=== PATIENT | female | born 1985 | race Caucasian/White ===

== ENCOUNTER 2016-09-02 09:32 | Emergency (ER) | payer SELFPAY ==
--- NOTE | 2016-09-02 10:34 | ED ---
Influenza-Like Illness - HPI Summary HPI Summary: Patient presents with two weeks of upper respiratory symptoms that she thought were improving last week, but became worse again. She has nasal and chest congestion, cough, intermittent headache, sore throat and fatigue. She has not measured her temperature, but she has had chills. - History of Current Complaint Chief Complaint: EDUpperRespComplaint Time Seen by Provider: 09/02/16 09:43 Hx Obtained From: Patient Onset/Duration: Gradual Onset, Lasting Weeks, Still Present Severity: Moderate Associated Signs & Symptoms: Cough, Sore Throat, Nasal Congestion Related Hx: Possible Flu/Infectious Exposure - Allergy/Home Medications Allergies/Adverse Reactions: Allergies Allergy/AdvReac Type Severity Reaction Status Date / Time Clindamycin Allergy Swelling Verified 09/02/16 09:36 PMH/Surg Hx/FS Hx/Imm Hx Previously Healthy: Yes - Surgical History Surgery Procedure, Year, and Place: TUBAL LIGATION Infectious Disease History: No Infectious Disease History: Denies: Traveled Outside the [place] in Last 30 Days - Family History Known Family History: Positive: None - Social History Occupation: Employed Full-time Lives: With Family Alcohol Use: Occasionally Substance Use Type: Reports: None Smoking Status (MU): Heavy Every Day Tobacco Smoker Cessation Counseling: Patient Advised to Stop Review of Systems Positive: Chills, Fatigue. Negative: Fever Positive: Sore Throat, Nasal Discharge Negative: Chest Pain Positive: Cough. Negative: Shortness Of Breath Negative: Vomiting, Diarrhea, Nausea Negative: Bruising Positive: Headache - intermittent. Negative: Weakness, Paresthesia All Other Systems Reviewed And Are Negative: Yes Physical Exam Triage Information Reviewed: Yes Vital Signs On Initial Exam: Initial Vitals Temp Pulse Resp BP Pulse Ox 98.0 F 92 20 138/91 99 09/02/16 09:36 09/02/16 09:36 09/02/16 09:36 09/02/16 09:36 09/02/16 09:36 Vital Signs Reviewed: Yes Appearance: Positive: Well-Appearing, No Pain Distress, Obese Skin: Positive: Warm, Skin Color Reflects Adequate Perfusion, Dry, Soft Head/Face: Positive: Normal Head/Face Inspection Eyes: Positive: EOMI, CLARA, Conjunctiva Clear ENT: Positive: Hearing grossly normal, Pharyngeal erythema, Nasal congestion, TMs normal - right obscured by wax. Negative: Tonsillar swelling Neck: Positive: Supple, No Lymphadenopathy, Tenderness @ - bilateral cervical chain. Negative: Nuchal Rigidity Respiratory/Lung Sounds: Positive: Clear to Auscultation, Breath Sounds Present Cardiovascular: Positive: RRR Musculoskeletal: Positive: Strength/ROM Intact. Negative: Edema Left, Edema Right Neurological: Positive: Sensory/Motor Intact, Alert, Oriented to Person Place, Time, NV Bundle Intact Distally, Normal Gait Psychiatric: Positive: Affect/Mood Appropriate AVPU Assessment: Alert Diagnostics - Vital Signs Vital Signs Temp Pulse Resp BP Pulse Ox 09/02/16 09:36 98.0 F 92 20 138/91 99 - Laboratory Lab Statement: Any lab studies that have been ordered have been reviewed, and results considered in the medical decision making process. Flu Symptom Course/Dx - Diagnoses Differential Diagnosis/HQI/PQRI: Positive: Bronchitis, Influenza, Pneumonia, RSV , Upper Respiratory Infection Provider Diagnoses: Bronchitis Discharge - Discharge Plan Condition: Stable Disposition: HOME Prescriptions: DOXYcycline CAP(*) [DOXYcycline 100MG CAP(*)] 100 mg PO DAILY #10 cap Patient Education Materials: Acute Bronchitis (ED) Referrals: [facility] [place] [place]] Additional Instructions: Please call the number provided to establish care with a primary care provider. Take the medication provided until it is completely gone. Return to the emergency department if your symptoms worsen.
--- NOTE | 2016-09-02 10:51 | RAD ---
INDICATION: Chest congestion. COMPARISON: Comparison is made with a prior chest x-ray study from November 23, 2013. TECHNIQUE: Dual-energy PA and lateral views of the chest were obtained. FINDINGS: The heart is within normal limits in size. Mediastinal and hilar contours appear within normal limits. The lungs are clear. No pleural effusion is present. IMPRESSION: NO EVIDENCE FOR ACTIVE CARDIOPULMONARY DISEASE.
[2016-09-02] MEDS ORDERED: Azithromycin TAB* 250 MG PO ONE (10:56)
[2016-09-02] MEDS ORDERED: DOXYcycline CAP(*) 100 MG PO ONE (11:44)
--- NOTE | 2016-09-02 12:02 | RAD ---
INDICATION: Right ring finger injury. TECHNIQUE: 3 views of the right ring finger were obtained. FINDINGS: The bones are normal alignment. No fracture is seen. Joint spaces appear maintained. IMPRESSION: NO EVIDENCE FOR FRACTURE.
[2016-09-02] MEDS ORDERED: Albuterol HFA INHALER* 8 gm MDI INH ONE (12:03)
[2016-09-02 12:35] VITALS: BP 145/97
[2016-09-02] MEDS ORDERED: Albuterol HFA INHALER* 8 gm MDI INH SCH (13:00)
== END 2016-09-02 12:31 | disposition home or self-care (01) ==
LOC: ED 09:32
DX: J40 Bronchitis, not specified as acute or chronic (principal); R05 Cough; J02.9 Acute pharyngitis, unspecified; R09.81 Nasal congestion; R51 Headache; R53.83 Other fatigue
CPT/HCPCS: 71020; 73140; 87651; 99282; A9270-GY

== ENCOUNTER 2017-01-07 19:12 | Emergency (ER) | payer SELFPAY ==
[2017-01-07 19:21] VITALS: BP 139/95
--- NOTE | 2017-01-07 19:55 | UC ---
Abdominal Pain Female HPI - HPI Summary HPI Summary: Burning general abdominal pain starting 4-5 days ago, minimally better with eating. On the first day had 4-5 episodes of diarrhea, since then has had 1 or 2 soft stools per day. Some nausea, no vomiting. Denies fever, cough, rash, or trouble breathing. Typically uses ibuprofen 3 doses per week. Hx of c/sec and tubal ligation. - History of Current Complaint Chief Complaint: UCAbdominalPain Stated Complaint: ABD PAIN Time Seen by Provider: 01/07/17 19:32 Hx Obtained From: Patient Hx Last Menstrual Period: 12/31/16 ?: No Onset/Duration: Gradual Onset, Lasting Days Timing: Constant Severity Initially: Mild Severity Currently: Mild Location: Diffuse Radiates: No Character: Burning, Dull Aggravating Factor(s): Nothing Alleviating Factor(s): Nothing Associated Signs and Symptoms: Positive: Decreased Appetite, Nausea, Diarrhea. Negative: Fever, Cough, Chest Pain, Back Pain, Constipation, Blood in Stool, Urinary Symptoms, Vaginal Discharge, Vomiting Allergies/Adverse Reactions: Allergies Allergy/AdvReac Type Severity Reaction Status Date / Time Clindamycin Allergy Swelling Verified 01/07/17 19:21 PMH/Surg Hx/FS Hx/Imm Hx Previously Healthy: Yes - Surgical History Surgical History: Yes Surgery Procedure, Year, and Place: TUBAL LIGATION - Family History Known Family History: Positive: None - Social History Occupation: Employed Full-time Lives: With Family Alcohol Use: Occasionally Substance Use Type: None Smoking Status (MU): Heavy Every Day Tobacco Smoker Amount Used/How Often: 1 ppd Review of Systems Constitutional: Negative Skin: Negative Eyes: Negative ENT: Negative Respiratory: Negative Cardiovascular: Negative Gastrointestinal: Abdominal Pain, Diarrhea, Nausea Genitourinary: Negative Motor: Negative Neurovascular: Negative Musculoskeletal: Negative Neurological: Negative Psychological: Negative All Other Systems Reviewed And Are Negative: Yes Physical Exam Triage Information Reviewed: Yes Appearance: Well-Appearing, No Pain Distress, Obese Vital Signs: Initial Vital Signs Temp 98.6 F 01/07/17 19:16 Pulse 96 01/07/17 19:16 Resp 18 01/07/17 19:16 BP 139/95 01/07/17 19:16 Pulse Ox 99 01/07/17 19:16 Vital Signs Reviewed: Yes Eye Exam: Normal, Other - PERRL Eyes: Positive: Conjunctiva Clear ENT Exam: Normal ENT: Positive: Normal ENT inspection, Hearing grossly normal, Pharynx normal, TMs normal Dental Exam: Normal Neck exam: Normal Neck: Positive: Supple, Nontender, No Lymphadenopathy Respiratory Exam: Normal Respiratory: Positive: Chest non-tender, Lungs clear, Normal breath sounds, No respiratory distress, No accessory muscle use Cardiovascular Exam: Normal Cardiovascular: Positive: RRR Abdomen Description: Positive: No Organomegaly, Soft. Negative: Bruit, CVA Tenderness (R), CVA Tenderness (L), Distended Musculoskeletal Exam: Normal Neurological Exam: Normal Neurological: Positive: Alert Psychological Exam: Normal Skin Exam: Normal Abd Pain Female Course/Dx - Differential Dx/Diagnosis Provider Diagnoses: gastritis. elevated blood pressure due to discomfort Discharge - Discharge Plan Condition: Stable Disposition: HOME Prescriptions: Omeprazole CAP* [Prilosec CAP* 20 MG] 20 mg PO BID #30 cap. Ondansetron HCl [Zofran 4 MG TAB] 4 mg PO Q6H #20 tab Patient Education Materials: Gastritis (ED) Referrals: [facility] [place] [facility] [Outside] - 2 Weeks Additional Instructions: Please arrange to see a primary care provider within 2 weeks for a recheck of your symptoms. If you develop worsening pain, fever, or repeated vomiting, please return here or go to the emergency department.
[2017-01-07] MEDS ORDERED: Al Hydrox/Mg Hydrox/Simet LIQ* 30 ML UDC PO ONE (19:57)
[2017-01-07] MEDS ORDERED: Famotidine TAB* 20 MG PO ONE (19:58)
[2017-01-07] MEDS ORDERED: Famotidine TAB* 20 MG ONE (20:05)
== END 2017-01-07 20:15 | disposition home or self-care (01) ==
LOC: UCEAST 19:12
DX: K29.70 Gastritis, unspecified, without bleeding (principal); R03.0 Elevated blood-pressure reading, without diagnosis of hypertension; E66.9 Obesity, unspecified; Z88.1 Allergy status to other antibiotic agents; F17.210 Nicotine dependence, cigarettes, uncomplicated
CPT/HCPCS: 81003; 99212; A9270-GY; G0463

== ENCOUNTER 2017-03-18 17:25 | Emergency (ER) | payer SELFPAY ==
[2017-03-18] MEDS ORDERED: Naproxen TAB* 250 MG PO ONE (20:10)
--- NOTE | 2017-03-18 21:14 | RAD ---
Indication: Chest pain. Single view of the chest demonstrates no mediastinal shift. Heart is of normal size and configuration. Lung plata are clear. When compared to previous exam of September 02, 2016 no significant change is noted. IMPRESSION: No active cardiopulmonary disease is noted.
[2017-03-18 21:35] LABS: Hematocrit 42 % (35-47); Hemoglobin 14.2 g/dl (12.0-16.0); Mean Corpuscular HGB Conc 34 g/dl (31-36); Mean Corpuscular Hemoglobin 31 pg (27-31); Mean Corpuscular Volume 90 fL (80-97); Mean Platelet Volume 8 um3 (7.4-10.4); Red Cell Distribution Width 14 % (10.5-15); White Blood Count 10.5 10^3/ul (3.5-10.8)
[2017-03-18 21:53] LABS: Albumin 4.1 g/dL (3.2-5.2); BUN/Creatinine Ratio 14.7 (8-20); C Reactive Protein 6.59 mg/L (< 5.00); Calcium 9.4 mg/dL (8.6-10.3); EGFR African American 114.5 (>60); Globulin 3.1 g/dL (2-4); Potassium 3.6 mmol/L (3.5-5.0); Total Bilirubin 0.4 mg/dL (0.2-1.0); Total Protein 7.2 g/dL (6.4-8.9)
--- NOTE | 2017-03-18 22:06 | ED ---
Akilah Georges Thomas, scribed for Anastasia Crook MD on 03/18/17 at 2005 . Headache - HPI Summary HPI Summary: The pt is a 32 y/o F presenting to the ED c/o a MARTÍNEZ and neck pain that began 5 days ago. The pt rates the pain /10. She denies any known trauma. The pain is aggravated by palpation and rotation of her head. It is alleviated by nothing. The patient has treated the pain with nothing GRANITE FABRICATOR. Pt additionally c/o sore throat, cough, back pain, diaphoresis, tiredness, chills, and chest heaviness. Pt denies any other complaints at this time. PMHx: previously healthy. PSHx: C- section. SHx: smoking, marijuana use. FHx: HTN, DM, HLD. She reports that any recent tick exposures are unlikely. She does not have a primary care doctor. - History Of Current Complaint Chief Complaint: EDGeneral Stated Complaint: STIFF NECK/SORE THROAT Time Seen by Provider: 03/18/17 19:53 Hx Obtained From: Patient Hx Last Menstrual Period: 12/31/16 Aggravating Factor: Other - Palpation, rotating head Allevating Factors: Nothing Associated Signs And Symptoms: Neck Pain, Other (Noted In Comments) - POS: sore throat, cough, back pain, diaphoresis, tiredness, chills, chest heaviness - Allergies/Home Medications Allergies/Adverse Reactions: Allergies Allergy/AdvReac Type Severity Reaction Status Date / Time Clindamycin Allergy Swelling Verified 01/07/17 19:21 PMH/Surg Hx/FS Hx/Imm Hx Previously Healthy: Yes Cardiovascular History: Denies: Hx Congestive Heart Failure Respiratory History: Denies: Hx Cystic Fibrosis - Surgical History Surgery Procedure, Year, and Place: TUBAL LIGATION, Infectious Disease History: Denies: Traveled Outside the [place] in Last 30 Days - Family History Known Family History: Positive: Hypertension, Diabetes, Other - POS: HLD - Social History Alcohol Use: Occasionally Substance Use Type: Reports: None Smoking Status (MU): Heavy Every Day Tobacco Smoker Amount Used/How Often: 1 ppd Review of Systems Positive: Skin Diaphoresis. Negative: Fever Positive: Sore Throat Positive: Other - POS: chest heaviness Positive: Cough Positive: Other - POS: neck pain, back pain Neurological: Other - POS: tiredness Positive: Headache All Other Systems Reviewed And Are Negative: Yes Physical Exam Triage Information Reviewed: Yes Vital Signs On Initial Exam: Initial Vitals Temp Pulse Resp BP Pulse Ox 97.6 F 88 18 138/90 98 03/18/17 17:28 03/18/17 17:28 03/18/17 17:28 03/18/17 17:28 03/18/17 17:28 Vital Signs Reviewed: Yes Appearance: Positive: Well-Appearing, No Pain Distress Skin: Positive: Warm, Skin Color Reflects Adequate Perfusion, Dry Eyes: Positive: EOMI, CLARA ENT: Positive: Pharyngeal erythema, TMs normal Neck: Positive: Supple, Nontender Respiratory/Lung Sounds: Positive: Clear to Auscultation, Breath Sounds Present. Negative: Rales, Rhonchi, Wheezes Cardiovascular: Positive: RRR. Negative: Murmur, Rub, Other - NEG: gallop Abdomen Description: Positive: Nontender, Soft. Negative: Distended, Guarding, Other: - NEG: rebounding Bowel Sounds: Positive: Present Musculoskeletal: Positive: Strength/ROM Intact. Negative: Edema Left, Edema Right Neurological: Positive: Sensory/Motor Intact, Alert, Oriented to Person Place, Time, CN Intact II-III Psychiatric: Positive: Affect/Mood Appropriate Diagnostics - Vital Signs Vital Signs Temp Pulse Resp BP Pulse Ox 03/18/17 19:13 97.5 F 83 16 137/77 98 03/18/17 17:28 97.6 F 88 18 138/90 98 - Laboratory Lab Results: Lab Results 03/18/17 03/18/17 03/18/17 Range/Units 21:07 21:25 21:25 WBC 10.5 (3.5-10.8) 10^3/ul RBC 4.60 (4.0-5.4) 10^6/ul Hgb 14.2 (12.0-16.0) g/dl Hct 42 (35-47) % MCV 90 (80-97) fL MCH 31 (27-31) pg MCHC 34 (31-36) g/dl RDW 14 (10.5-15) % Plt Count 287 (150-450) 10^3/ul MPV 8 (7.4-10.4) um3 Neut % (Auto) 43.9 (38-83) % Lymph % (Auto) 46.3 (25-47) % [place] % (Auto) 4.4 (1-9) % Eos % (Auto) 4.8 (0-6) % Baso % (Auto) 0.6 (0-2) % Absolute Neuts (auto) 4.6 (1.5-7.7) 10^3/ul Absolute Lymphs (auto) 4.9 H (1.0-4.8) 10^3/ul Absolute Monos (auto) 0.5 (0-0.8) 10^3/ul Absolute Eos (auto) 0.5 (0-0.6) 10^3/ul Absolute Basos (auto) 0.1 (0-0.2) 10^3/ul Absolute Nucleated RBC 0 10^3/ul Nucleated RBC % 0 Sodium 138 (133-145) mmol/L Potassium 3.6 (3.5-5.0) mmol/L Chloride 107 (101-111) mmol/L Carbon Dioxide 26 (22-32) mmol/L Anion Gap 5 (2-11) mmol/L BUN 11 (6-24) mg/dL Creatinine 0.75 (0.51-0.95) mg/dL Est GFR ( Amer) 114.5 (>60) Est GFR (Non-Af Amer) 89.0 (>60) BUN/Creatinine Ratio 14.7 (8-20) Glucose 89 (70-100) mg/dL Calcium 9.4 (8.6-10.3) mg/dL Total Bilirubin 0.40 (0.2-1.0) mg/dL AST 20 (13-39) U/L ALT 15 (7-52) U/L Alkaline Phosphatase 68 (34-104) U/L C-Reactive Protein 6.59 H (< 5.00) mg/L Total Protein 7.2 (6.4-8.9) g/dL Albumin 4.1 (3.2-5.2) g/dL Globulin 3.1 (2-4) g/dL Albumin/Globulin Ratio 1.3 (1-3) Group A Strep Rapid Negative (Negative) Result Diagrams: 03/18/17 21:25 03/18/17 21:25 Lab Statement: Any lab studies that have been ordered have been reviewed, and results considered in the medical decision making process. - Radiology CXR Xray Interpretation: No Acute Changes - CXR reveals no active cardiopulmonary disease is noted. ED physician has reviewed this radiology report and agrees. Radiology Interpretation Completed By: Radiologist - EKG 21:55 Cardiac Rate: NL - 68 BPM EKG Interpretation: Normal Headache Course/Dx - Course Course Of Treatment: pt with spasmed muscles of cervical spine on exam and some thoracic pain, reports she carefully looks for ticks with a basic work up done here all neg, no meningismus or fever on exam - Diagnoses Provider Diagnoses: Neck pain Discharge - Discharge Plan Condition: Stable Disposition: HOME Prescriptions: Cyclobenzaprine TAB* [Flexeril 10 MG TAB*] 10 mg PO TID PRN #30 tab PRN Reason: Spasms Forms: *Work Release Referrals: [facility] [place] [place] [place]] - 3 Days The documentation as recorded by the Akilah rossi Thomas accurately reflects the service I personally performed and the decisions made by , Anastasia Crook MD.
[2017-03-18] MEDS ORDERED: Cyclobenzaprine TAB* 10 MG PO ONE (22:35)
[2017-03-18 22:53] VITALS: BP 137/96
== END 2017-03-18 22:45 | disposition home or self-care (01) ==
LOC: ED 17:25
DX: M54.2 Cervicalgia (principal); F17.210 Nicotine dependence, cigarettes, uncomplicated
CPT/HCPCS: 36415; 71010; 80053; 85025; 86140; 86618; 87651; 93005; 99283; A9270-GY

== ENCOUNTER 2017-07-03 10:26 | Emergency (ER) | payer SELFPAY ==
--- NOTE | 2017-07-03 11:15 | ED ---
Lexi Georges Emily, scribed for Willie Sanchez MD on 07/03/17 at 1113 . Complex/Multi-Sys Presentation - HPI Summary HPI Summary: This patient is a 32 year old F presenting to [facility] with a chief complaint of right, lower toothache that began yesterday. The patient rates the pain 5/10 in severity. Symptoms aggravated by nothing. Symptoms alleviated by nothing. Patient reports R ear pain (chronic). Patient denies fever and chills. Medications reviewed. - History Of Current Complaint Chief Complaint: EDDentalPain Hx Obtained From: Patient Onset/Duration: Sudden Onset, Lasting Days, Still Present Timing: Constant, Days Severity Currently: Mild Severity Initially: Mild Location: Pain At: - Right, lower tooth Associated Signs And Symptoms: Positive: Other - Positive R ear pain. Negative fever and chills - Allergies/Home Medications Allergies/Adverse Reactions: Allergies Allergy/AdvReac Type Severity Reaction Status Date / Time Clindamycin Allergy Swelling Verified 07/03/17 10:40 PMH/Surg Hx/FS Hx/Imm Hx Previously Healthy: Yes Cardiovascular History: Denies: Hx Congestive Heart Failure Respiratory History: Denies: Hx Cystic Fibrosis Opthamlomology History: Denies: Hx Legally Blind EENT History: Denies: Hx Deafness - Surgical History Surgery Procedure, Year, and Place: TUBAL LIGATION, Infectious Disease History: No Infectious Disease History: Denies: Traveled Outside the [place] in Last 30 Days - Family History Known Family History: Positive: Hypertension, Diabetes, Other - POS: HLD - Social History Occupation: Employed Full-time Lives: Alone Alcohol Use: Weekly Alcohol Amount: weekend Substance Use Type: Reports: None Smoking Status (MU): Heavy Every Day Tobacco Smoker Amount Used/How Often: 1 ppd Review of Systems Negative: Fever, Chills Positive: Dental Pain, Ear Ache All Other Systems Reviewed And Are Negative: Yes Physical Exam Triage Information Reviewed: Yes Vital Signs On Initial Exam: Initial Vitals Temp Pulse Resp BP Pulse Ox 97.2 F 90 18 129/83 98 07/03/17 10:27 07/03/17 10:27 07/03/17 10:27 07/03/17 10:27 07/03/17 10:27 Vital Signs Reviewed: Yes Appearance: Positive: Well-Appearing, No Pain Distress Skin: Positive: Warm, Skin Color Reflects Adequate Perfusion, Dry Head/Face: Positive: Other - Right, lower mandible swelling in cheek Eyes: Positive: EOMI, CLARA ENT: Positive: Other - Right TM has scarring. Left TM is nml Dental: Positive: Other - Right lower molar with a large carry in it Neck: Positive: Supple, Nontender Respiratory/Lung Sounds: Positive: Clear to Auscultation, Breath Sounds Present Cardiovascular: Positive: RRR Abdomen Description: Positive: Nontender Bowel Sounds: Positive: Present Musculoskeletal: Positive: Normal, Strength/ROM Intact Neurological: Positive: Normal, Sensory/Motor Intact, Alert, Oriented to Person Place, Time Psychiatric: Positive: Affect/Mood Appropriate Diagnostics - Vital Signs Vital Signs Temp Pulse Resp BP Pulse Ox 07/03/17 11:00 79 98 07/03/17 10:49 90 98 07/03/17 10:48 131/89 07/03/17 10:27 97.2 F 90 18 129/83 98 - Laboratory Lab Statement: Any lab studies that have been ordered have been reviewed, and results considered in the medical decision making process. Complex Multi-Symp Course/Dx Course Of Treatment: RX AUGMENTIN/NORCO. F/U DENTIST; RETURN IF WORSE. - Diagnoses Provider Diagnoses: Dental abscess, Toothache Discharge - Discharge Plan Condition: Stable Disposition: HOME Prescriptions: Amoxicillin/Clavulanate TAB* [Augmentin TAB 875*] 875 mg PO BID #20 tab HYDROcodone/ACETAMIN 5-325 MG* [[place] 5-325 TAB*] 1 tab PO Q4H PRN #15 tab MDD 6 PRN Reason: Pain Patient Education Materials: Dental Abscess (ED), Toothache (ED) Referrals: No Primary Care Phys,NOPCP [Primary Care Provider] - Additional Instructions: FOLLOW UP WITH YOUR DENTIST. RETURN TO THE EMERGENCY DEPARTMENT FOR ANY WORSENING OF YOUR CONDITION OR QUESTIONS OR CONCERNS. The documentation as recorded by the Lexi rossi Emily accurately reflects the service I personally performed and the decisions made by , Willie Sanchez MD.
[2017-07-03 11:33] VITALS: BP 127/98
== END 2017-07-03 11:31 | disposition home or self-care (01) ==
LOC: ED 10:26
DX: K04.7 Periapical abscess without sinus (principal); H92.09 Otalgia, unspecified ear; K08.89 Other specified disorders of teeth and supporting structures; F17.210 Nicotine dependence, cigarettes, uncomplicated
CPT/HCPCS: 99282

== ENCOUNTER 2017-10-08 14:29 | Emergency (ER) | payer OTHER ==
--- NOTE | 2017-10-08 16:14 | ED ---
Influenza-Like Illness - HPI Summary HPI Summary: 32 female presents to ED with complaints of fever, body aches, sore throat and cough. States she started feeling "lousy" 2 days ago however the symptoms have been much worse and began approximately 24 hours ago. Has been taking tylenol/ ibuprofen for fever and body aches, with relief. No other complaints. Admits to intermittent nausea and decreased appetite, but no abdominal pain, vomiting or diarrhea. Last took ibuprofen around 12 today. Did have the flu shot this year. - History of Current Complaint Chief Complaint: EDFever Time Seen by Provider: 10/08/17 14:56 Hx Obtained From: Patient Onset/Duration: Sudden Onset, Lasting Days, Still Present, Worse Since Severity: Moderate Associated Signs & Symptoms: Fever, T Max, Myalgia, Cough, Sore Throat, Nasal Congestion, Headache - Allergy/Home Medications Allergies/Adverse Reactions: Allergies Allergy/AdvReac Type Severity Reaction Status Date / Time clindamycin Allergy Swelling Verified 10/08/17 14:37 PMH/Surg Hx/FS Hx/Imm Hx Endocrine/Hematology History: Denies: Hx Diabetes Cardiovascular History: Denies: Hx Congestive Heart Failure, Hx Hypertension Respiratory History: Denies: Hx Cystic Fibrosis Sensory History: Denies: Hx Legally Blind, Hx Deafness Opthamlomology History: Denies: Hx Legally Blind - Surgical History Surgery Procedure, Year, and Place: TUBAL LIGATION, - Immunization History Immunizations Up to Date: Yes Infectious Disease History: No Infectious Disease History: Denies: Traveled Outside the [place] in Last 30 Days - Family History Known Family History: Positive: None, Hypertension, Diabetes, Other - POS: HLD - Social History Alcohol Use: Occasionally Alcohol Amount: weekend Substance Use Type: Reports: None Smoking Status (MU): Light Every Day Tobacco Smoker Amount Used/How Often: 1 ppd Review of Systems Positive: Fever, Chills, Fatigue Positive: Sore Throat, Nasal Discharge Cardiovascular: Negative Positive: Cough Positive: Nausea Positive: Myalgia Neurological: Negative All Other Systems Reviewed And Are Negative: Yes Physical Exam Triage Information Reviewed: Yes Vital Signs On Initial Exam: Initial Vitals Temp Pulse Resp BP Pulse Ox 98.5 F 95 16 133/83 98 10/08/17 14:33 10/08/17 14:33 10/08/17 14:33 10/08/17 14:33 10/08/17 14:33 Vital Signs Reviewed: Yes Appearance: Positive: No Pain Distress, Well-Nourished, Ill-Appearing - flu-like Skin: Positive: Warm, Skin Color Reflects Adequate Perfusion, Dry. Negative: Cold, Cyanosis @, Pale, Erythema @ Eyes: Positive: Normal, Conjunctiva Clear ENT: Positive: Hearing grossly normal, Pharynx normal, Pharyngeal erythema, Nasal congestion, TMs normal, Uvula midline. Negative: Tonsillar swelling, Tonsillar exudate Neck: Positive: Supple, Nontender, No Lymphadenopathy Respiratory/Lung Sounds: Positive: Clear to Auscultation, Breath Sounds Present. Negative: Rales, Rhonchi, Wheezes Cardiovascular: Positive: Normal, RRR, Pulses are Symmetrical in both Upper and Lower Extremities. Negative: Murmur, Rub Abdomen Description: Positive: Nontender Bowel Sounds: Positive: Present Musculoskeletal: Positive: Normal, Strength/ROM Intact Neurological: Positive: Normal, Sensory/Motor Intact, Alert, Oriented to Person Place, Time Diagnostics - Vital Signs Vital Signs Temp Pulse Resp BP Pulse Ox 10/08/17 14:33 98.5 F 95 16 133/83 98 - Laboratory Lab Results: Lab Results 10/08/17 10/08/17 Range/Units 15:22 15:24 Influenza A (Rapid) Negative (Negative) Influenza B (Rapid) Positive A (Negative) Group A Strep Rapid Negative (Negative) Lab Statement: Any lab studies that have been ordered have been reviewed, and results considered in the medical decision making process. Flu Symptom Course/Dx - Course Course Of Treatment: influenza and strep obtained. influenza b positive. normal vitals. given tylenol prior to discharge. tamiflu, fluids, rest and continue tylenol/ibuprofen. aware of worsening signs and symptoms to watch out ofr. educated on hygeine precautions. follow up with pcp. - Diagnoses Differential Diagnosis/HQI/PQRI: Positive: Influenza Provider Diagnoses: Influenza B Discharge - Sign-Out/Discharge Documenting (check all that apply): Discharge - Discharge Plan Condition: Good Disposition: HOME Prescriptions: Oseltamivir CAP* [Tamiflu CAP*] 75 mg PO BID #10 cap Patient Education Materials: Influenza (ED) Referrals: No Primary Care Phys,NOPCP [Primary Care Provider] - [facility] [place] [facility] [Outside] Additional Instructions: Continue taking ibuprofen and Tylenol as needed for fever and body aches. Take prescribed Tamiflu as directed for the next 5 days. Increase fluid intake and get plenty or rest. Wash hands frequently and avoid spreading germs. Cover mouth when coughing. Any worsening symptoms please seek medical attention. Follow-up with primary care provider in 3 days to ensure improvement. - Billing Disposition and Condition Condition: GOOD Disposition: HOME
[2017-10-08] MEDS ORDERED: Acetaminophen TAB* 325 MG PO ONE (16:20)
[2017-10-08 16:56] VITALS: BP 144/98
== END 2017-10-08 16:56 | disposition home or self-care (01) ==
LOC: ED 14:29
DX: J10.1 Influenza due to other identified influenza virus with other respiratory manifestations (principal); R50.9 Fever, unspecified; J02.9 Acute pharyngitis, unspecified; R05 Cough; R51 Headache; F17.210 Nicotine dependence, cigarettes, uncomplicated
CPT/HCPCS: 87502; 87651; 99282; A9270-GY

== ENCOUNTER 2018-03-06 14:55 | Emergency (ER) | payer OTHER ==
[2018-03-06 16:02] VITALS: BP 108/87
--- NOTE | 2018-03-06 18:26 | ED ---
Throat Pain/Nasal Congestion - HPI Summary HPI Summary: Pt. presenting to the ER for right sided dental pain and right ear pain x several days. Denies associated symptoms of fever, chills nausea, vomiting, productive cough. Symptoms are mild in severity. Touching affected area makes symptoms worse. Rest makes symptoms better. Denies significant past medical history. - History of Current Complaint Chief Complaint: EDDentalPain Time Seen by Provider: 03/06/18 15:29 Hx Obtained From: Patient - Allergies/Home Medications Allergies/Adverse Reactions: Allergies Allergy/AdvReac Type Severity Reaction Status Date / Time clindamycin Allergy Swelling Verified 03/06/18 15:26 Home Medications: Home Medications Acetaminophen [Tylenol Extra Strength] 1 - 2 tab PO DAILY PRN 03/06/18 [History Confirmed 03/06/18] PMH/Surg Hx/FS Hx/Imm Hx Previously Healthy: Yes Endocrine/Hematology History: Denies: Hx Diabetes Cardiovascular History: Denies: Hx Congestive Heart Failure, Hx Hypertension Respiratory History: Denies: Hx Cystic Fibrosis Sensory History: Denies: Hx Legally Blind, Hx Deafness Opthamlomology History: Denies: Hx Legally Blind - Surgical History Surgery Procedure, Year, and Place: TUBAL LIGATION, Infectious Disease History: No Infectious Disease History: Denies: Traveled Outside the [place] in Last 30 Days - Family History Known Family History: Positive: None, Hypertension, Diabetes, Other - POS: HLD - Social History Occupation: Employed Full-time Lives: With Family Alcohol Use: Occasionally Alcohol Amount: weekend Substance Use Type: Reports: None Smoking Status (MU): Heavy Every Day Tobacco Smoker Amount Used/How Often: 1 ppd Review of Systems Constitutional: Negative Negative: Fever, Chills Eyes: Negative Positive: Dental Pain, Ear Ache All Other Systems Reviewed And Are Negative: Yes Physical Exam Triage Information Reviewed: Yes Vital Signs On Initial Exam: Initial Vitals Temp Pulse Resp BP Pulse Ox 97.7 F 78 16 126/84 98 03/06/18 15:08 03/06/18 15:08 03/06/18 15:08 03/06/18 15:08 03/06/18 15:08 Vital Signs Reviewed: Yes Appearance: Positive: Well-Appearing - Pt. sitting on bed in NAD. Family member present. Skin: Positive: Warm, Dry Head/Face: Positive: Normal Head/Face Inspection Eyes: Positive: Normal, EOMI ENT: Positive: Other - Right TM is erythematous and bulging. Left TM is unremarkable. Oropharynx is patent without tonsillar edema or exudates. Dental: Positive: Other - Poor dentition throughout. Diffuse pain on palpation to right upper molars. No drainable abscess. No trismus. No swelling. No Submandibular Edema. Neck: Positive: Supple, Nontender, No Lymphadenopathy, Other: Neurological: Positive: Normal, CN Intact II-III Psychiatric: Positive: Affect/Mood Appropriate Diagnostics - Vital Signs Vital Signs Temp Pulse Resp BP Pulse Ox 03/06/18 16:01 97.7 F 71 16 108/87 98 03/06/18 15:08 97.7 F 78 16 126/84 98 - Laboratory Lab Statement: Any lab studies that have been ordered have been reviewed, and results considered in the medical decision making process. EENT Course/Dx - Course Course Of Treatment: Will treat patient with Augmentin for otitis media and dentalgia. She notes that she typically gets yeast infections when on an antibiotic. Diflucan prescribed as well. Ibuprofen prescribed for pain. Advised to call her dentist tomorrow to schedule close follow-up appointment. Advised to eat yogurt and probiotics. Will return to the ER if symptoms change or worsen. Patient understands and agrees with plan. - Differential Diagnoses Differential Diagnoses: Dental Abscess, Dental Caries, Gingivitis, Brenden's Angina, Otitis Externa, Otitis Media, Pharyngitis, Sinusitis - Diagnoses Provider Diagnoses: Dentalgia, Otitis media Discharge - Sign-Out/Discharge Documenting (check all that apply): Patient Departure - Discharge Plan Condition: Good Disposition: HOME Prescriptions: Amoxicillin/Clavulanate TAB* [Augmentin TAB 875*] 875 mg PO BID #20 tab Fluconazole [Diflucan 150 MG (NF)] 150 mg PO ONCE #1 tab Ibuprofen TAB* [Motrin TAB* 800 MG] 800 mg PO Q8H #20 tab Patient Education Materials: Ear Infection (ED), Toothache (ED) Referrals: [facility] [Outside] No Primary Care Phys,NOPCP [Primary Care Provider] - Additional Instructions: Schedule a follow up appointment with a dentist Take medication as directed Return to ER if symptoms change or worsen - Billing Disposition and Condition Condition: GOOD Disposition: Home
== END 2018-03-06 16:01 | disposition home or self-care (01) ==
LOC: ED 14:55
DX: K08.89 Other specified disorders of teeth and supporting structures (principal); H66.91 Otitis media, unspecified, right ear; Z72.0 Tobacco use
CPT/HCPCS: 99282

== ENCOUNTER 2018-08-27 22:35 | Emergency (ER) | payer OTHER ==
[2018-08-28] MEDS ORDERED: Amoxicillin/Clavulanate TAB* 875 MG PO ONE (00:29)
[2018-08-28] MEDS ORDERED: Ibuprofen TAB* 400 MG PO ONE (00:29)
[2018-08-28] MEDS ORDERED: Dexamethasone TAB* 4 MG PO ONE (00:30)
--- NOTE | 2018-08-28 00:30 | ED ---
Throat Pain/Nasal Congestion - HPI Summary HPI Summary: This patient is a 33 year old MF presenting to [facility] with a chief complaint of sore throat since 3 days ago. The patient rates the pain 10/10 in severity. Patient reports ear aches, worse in the right, and difficulty hearing out of right ear. Patient denies fever. PMHX none. RX none. - History of Current Complaint Chief Complaint: EDThroatPain Time Seen by Provider: 08/28/18 00:24 Hx Obtained From: Patient Onset/Duration: Gradual Onset, Lasting Days - 3 Associated Signs And Symptoms: Positive: Hoarseness - Allergies/Home Medications Allergies/Adverse Reactions: Allergies Allergy/AdvReac Type Severity Reaction Status Date / Time clindamycin Allergy Swelling Verified 08/27/18 22:39 PMH/Surg Hx/FS Hx/Imm Hx Endocrine/Hematology History: Denies: Hx Diabetes Cardiovascular History: Denies: Hx Congestive Heart Failure, Hx Hypertension Respiratory History: Denies: Hx Cystic Fibrosis Sensory History: Denies: Hx Legally Blind, Hx Deafness Opthamlomology History: Denies: Hx Legally Blind - Surgical History Surgery Procedure, Year, and Place: TUBAL LIGATION, Infectious Disease History: No Infectious Disease History: Denies: Traveled Outside the [place] in Last 30 Days - Family History Known Family History: Positive: Hypertension, Diabetes, Other - POS: HLD - Social History Alcohol Use: Occasionally Alcohol Amount: weekend Substance Use Type: Reports: None Smoking Status (MU): Heavy Every Day Tobacco Smoker Amount Used/How Often: 1 ppd Review of Systems Negative: Fever Positive: Sore Throat, Ear Ache, Other - difficulty hearing All Other Systems Reviewed And Are Negative: Yes Physical Exam - Summary Physical Exam Summary: VITAL SIGNS: Reviewed. GENERAL: Patient is a well-developed and nourished female who is lying comfortable in the stretcher. Patient is not in any acute respiratory distress. HEAD AND FACE: No signs of trauma. No ecchymosis, hematomas or skull depressions. No sinus tenderness. EYES: PERRLA, EOMI x 2, No injected conjunctiva, no nystagmus. EARS: Hearing grossly intact. Ear canals and tympanic membranes are within normal limits. There is impaction of the right ear. MOUTH: Oropharynx within normal limits. Bilateral pharyngeal erythema, worse in the right. NECK: Supple, trachea is midline, there is cervical adenopathy, no JVD, no carotid bruit, no c-spine tenderness, neck with full ROM. CHEST: Symmetric, no tenderness at palpation LUNGS: Clear to auscultation bilaterally. No wheezing or crackles. CVS: Regular rate and rhythm, S1 and S2 present, no murmurs or gallops appreciated. ABDOMEN: Soft, non-tender. No signs of distention. No rebound no guarding, and no masses palpated. Bowel sounds are normal. EXTREMITIES: FROM in all major joints, no edema, no cyanosis or clubbing. NEURO: Alert and oriented x 3. No acute neurological deficits. Speech is normal and follows commands. SKIN: Dry and warm GCS: 15 Triage Information Reviewed: Yes Vital Signs On Initial Exam: Initial Vitals Temp Pulse Resp BP Pulse Ox 98.0 F 77 16 133/74 100 08/27/18 22:35 08/27/18 22:35 08/27/18 22:35 08/27/18 22:35 08/27/18 22:35 Vital Signs Reviewed: Yes Diagnostics - Vital Signs Vital Signs Temp Pulse Resp BP Pulse Ox 08/27/18 22:35 98.0 F 77 16 133/74 100 - Laboratory Lab Statement: Any lab studies that have been ordered have been reviewed, and results considered in the medical decision making process. EENT Course/Dx - Course Course Of Treatment: This patient is a 33 year old MF presenting to [facility] with a chief complaint of sore throat since 3 days ago. The patient rates the pain 10 /10 in severity. Patient reports ear aches, worse in the right, and difficulty hearing out of right ear. Patient denies fever. In the ED course the patient was given Amoxicillin, Dexamethason, and Ibuprofen. Patient will be discharged with prescription for Amoxicillin and Ibuprofen and follow up from [facility] physician referral. The patient is agreeable with this plan. - Diagnoses Provider Diagnoses: Laryngitis, Otitis media Discharge - Sign-Out/Discharge Documenting (check all that apply): Patient Departure - discharge Patient Received Moderate/Deep Sedation with Procedure: No - Discharge Plan Condition: Stable Disposition: HOME Prescriptions: Amoxicillin/Clavulanate TAB* [Augmentin TAB 875*] 875 mg PO BID #14 tab Ibuprofen TAB* [Motrin TAB* 800 MG] 800 mg PO Q6H PRN #30 tab PRN Reason: Pain Patient Education Materials: Laryngitis (ED), Ear Infection (ED) Referrals: [facility] PHYSICIAN REFERRAL [Outside] - 2 Days Additional Instructions: Follow up with [facility] physician referral in 1-3 days. RETURN TO THE EMERGENCY DEPARTMENT FOR CHANGING OR WORSENING SYMPTOMS. - Billing Disposition and Condition Condition: STABLE Disposition: Home - Attestation Statements Document Initiated by Scribe: Yes Documenting Scribe: Tyrese Abarca Provider For Whom Scribe is Documenting (Include Credential): Reba Chávez MD Scribe Attestation: Tyrese Georges, scribed for Reba Chávez MD on 08/28/18 at 2120. Scribe Documentation Reviewed: Yes Provider Attestation: The documentation as recorded by the Tyrese rossi accurately reflects the service I personally performed and the decisions made by Kristian lipscomb MD Status of Scribe Document: Viewed
[2018-08-28 01:02] VITALS: BP 135/87
== END 2018-08-28 00:45 | disposition home or self-care (01) ==
LOC: ED 22:35
DX: J04.0 Acute laryngitis (principal); H66.91 Otitis media, unspecified, right ear; J02.9 Acute pharyngitis, unspecified; H92.09 Otalgia, unspecified ear; F17.210 Nicotine dependence, cigarettes, uncomplicated
CPT/HCPCS: 99282; A9270-GY; J8540

== ENCOUNTER 2018-10-14 10:01 | Emergency (ER) | payer OTHER ==
--- OUTSIDE RECORDS SUMMARY | 2018-10-14 10:12 | XMS REPORT | Continuity of Care Document ---
:1985 Author Organization [facility] Address [address], [place] [id number] Phone Care Team Providers Name Role Phone Tavo MORAES, Anju Unavailable Unavailable Allergies, Adverse Reactions, Alerts Substance Reaction Status clindamycin Active Medications Medication Instructions Dosage Effective Dates Status Comments (start - stop) metronidazole 500 mg 4 tabs po x 1 (#4) - Active tablet fluconazole 150 mg 1 po x 1 after - Active tablet completion of antibiotics (#1) Problems Condition Effective Dates (start - Clinical Status Comments stop) Encntr screen for infections w sexl mode of transmiss Candidiasis of vulva and vagina Encounter for screening for oth infec/parastc diseases Pruritus vulvae Trichomonal vulvovaginitis Procedures Procedure Date CHYLMD DNA, AMP PROBE N.GONORRHOEAE, DNA, AMP PROB OFFICE/OUTPATIENT VISIT, NEW OTHER Medical Services VAGINITIS RX Contraceptive Body Hanger.Svc. Other Body Hanger.Svc. STI FLUCONAZOLE 150 MG #1 METRONIDAZOLE 500 MG #4 WET SMEAR ASSAY OF BODY FLUID-PH Results Test Name Date and Time Measure Units Reference Range Abnormal Flag Status Comments Panel Description: Wet Mount Final Wet Mount 14:41:19 Hyphae/Stephania: noBudding yeast: Final yesTrich: yesClue cells: yes (<20%)WBCs: yes (few)Amine/Whiff test: negativepH: 5.5 Panel Description: C trach DNA XXX Ql PCR Final Swab CT - Negative N Final Performed Vaginal 00:00:00 by:
&emsp;&ensp;CDD ([id number])

Panel Description: Amplified GC - Vaginal Final Swab GC - Negative N Final : Vaginal 00:00:00 No

Performed by:
&emsp;&ensp;CDD ([id number])

Advance Directives Directive Yes / No Effective Date File Name No information Encounters Encounter Practice Location Reason(s) Diagnoses Date Provider Providers Description For Visit Copied on Encounter OFFICE/OUTPA [facility]- Referring TIENT VISIT[facility] [place] Itching infections w sexl [address] Provider: VIR[place]IA Morrell (chief mode of [address] Sue[address] Finger complaint) transmissCandidiasi [address] [place], [address], [address], [place], screening for oth [place], [place], [place], infec/parastc [place], [place], [id number], diseasesPruritus [address]. [place], [address]. [place] vulvaeTrichomonal tel:+60 tel:+60 tel:+60 vulvovaginitis [id number] Family History Family Member Diagnosis Age At Onset No information Immunizations Vaccine Date Status Comments No information Payers Payer name Insurance type Covered democrat ID Authorization(s) [employer] MU[employer] Options [facility] CI [id number] Social History Type Description Quantity Date Captured Comments Alcohol Use Details Unknown Caffeine Use Details Unknown Tobacco Use Status Heavy cigarette smoker (20-39 cigs/day) Smoking Status Heavy tobacco smoker Smoking Tobacco Use Cigarette: No Details Available Cigarette: 1 Packs per day Details Sex Female Vital Signs Date / Height Weight BMI Pulse Blood Temperature Respiratory Body Head BMI Pulse Inhaled Time: Rate Pressure Rate Surface Circumference percentile Ox Ox Area No information Chief Complaint And Reason For Visit Most recent encounter only, dated '09/28/2018 13:00'. Vaginal Itching ( chief complaint) Reason For Referral Reason For Referral No information Plan Of Treatment Date Type Action Status No information History Of Present Illness Encounter Date Complaint History Of Present Illness No information Functional Status Date Functional Assessment No information Medications Administered Medication Instructions Dosage Effective Dates (start - stop) Status Comments No information Instructions Date Instruction Additional Information No information Assessments Type Assessment Date assessment Encntr screen for infections w sexl mode of transmiss assessment Candidiasis of vulva and vagina assessment Encounter for screening for oth infec/parastc diseases assessment Pruritus vulvae assessment Trichomonal vulvovaginitis Goals Health Concern Goal Type Priority Status Date No information Medical Equipment Description Device Kermit Device Identifier Effective Dates (start - stop ) Status No information Mental Status Date Cognitive Assessment No information Health Concerns Observation Date No information Concern Status Date No information
--- NOTE | 2018-10-14 11:19 | ED ---
Skin Complaint - HPI Summary HPI Summary: This patient is a 33 year old F presenting to [facility] with a chief complaint of left second digit infection since last night. The patient rates the pain 10/10 in severity. Patient reports difficulty sleeping and pounding pain in the infected finger. The patient states she had a hang nail that became infected. PMHX Yeast infection. - History of Current Complaint Chief Complaint: EDExtremityUpper Time Seen by Provider: 10/14/18 11:07 Stated Complaint: "I THINK I HAVE AN INFECTION IN MY FINGER" PER PT Hx Obtained From: Patient Hx Last Menstrual Period: 12/31/16 Onset/Duration: Started Days Ago Timing: Constant Onset Severity: Mild Current Severity: Severe Pain Intensity: 10 Pain Scale Used: 0-10 Numeric Skin Location: Hand - left Character: Swelling, Pain Aggravating Symptom(s): Touch Alleviating Symptom(s): Nothing Associated Signs & Symptoms: Negative - Allergy/Home Medications Allergies/Adverse Reactions: Allergies Allergy/AdvReac Type Severity Reaction Status Date / Time clindamycin Allergy Swelling Verified 10/14/18 10:24 Home Medications: Home Medications NK [No Home Medications Reported] 10/14/18 [History Confirmed 10/14/18] PMH/Surg Hx/FS Hx/Imm Hx Endocrine/Hematology History: Denies: Hx Diabetes Cardiovascular History: Denies: Hx Congestive Heart Failure, Hx Hypertension Respiratory History: Denies: Hx Cystic Fibrosis Sensory History: Denies: Hx Legally Blind, Hx Deafness Opthamlomology History: Denies: Hx Legally Blind - Surgical History Surgery Procedure, Year, and Place: TUBAL LIGATION, Infectious Disease History: No Infectious Disease History: Denies: Traveled Outside the [place] in Last 30 Days - Family History Known Family History: Positive: Hypertension, Diabetes, Other - POS: HLD - Social History Alcohol Use: Occasionally Alcohol Amount: weekend Substance Use Type: Reports: None Smoking Status (MU): Heavy Every Day Tobacco Smoker Amount Used/How Often: 1 ppd Review of Systems Positive: Edema - left second digit, Other - pain of left finger Positive: Other - infection left second digit Neurological: Other - difficulty sleeping due to pain All Other Systems Reviewed And Are Negative: Yes Physical Exam - Summary Physical Exam Summary: Appearance: Well appearing, no pain distress Skin: warm, dry, reflects adequate perfusion. Swelling, tenderness, and erythema of the left second digit of distal phalanx and around nailbed. Head/face: normal Eyes: EOMI, CLARA ENT: normal Neck: supple, non-tender Respiratory: CTA, breath sounds present Cardiovascular: RRR, pulses symmetrical Abdomen: non-tender, soft Musculoskeletal: normal, strength/ROM intact Neuro: normal, sensory motor intact, A&Ox3 Triage Information Reviewed: Yes Vital Signs On Initial Exam: Initial Vitals Temp Pulse Resp BP Pulse Ox 97 F 76 16 146/107 100 10/14/18 10:04 10/14/18 10:04 10/14/18 10:04 10/14/18 10:04 10/14/18 10:04 Vital Signs Reviewed: Yes Procedures - Procedure Summary Procedure Summary: Cleaned without a swab. There was a little aspiration of the abscess. The patient tolerated it well and there were no complications. - Incision and Drainage Left Distal Finger Site: 2nd digit, around nailbed Anesthesia: Other - none Instrument(s): Needle Packing: Drain Diagnostics - Vital Signs Vital Signs Temp Pulse Resp BP Pulse Ox 10/14/18 10:04 97 F 76 16 146/107 100 - Laboratory Lab Statement: Any lab studies that have been ordered have been reviewed, and results considered in the medical decision making process. Course/Dx - Course Course Of Treatment: This patient is a 33 year old F [facility] with a chief complaint of left second digit infection since last night. The patient rates the pain 10/10 in severity. Patient reports difficulty sleeping and pounding pain in the infected finger. In the ED course the patient was given Ibuprofen and Trimethoprim. The patients abscess was successfully aspirated without local anesthesia or a swab. The patient tolerated the procedure well and there were no complications. Patient will be discharged with prescription for Fluconazole, Ibuprofen, and Sulfamethox and follow up from [facility] physician referral, if needed. The patient is agreeable with this plan. - Differential Diagnoses - Skin Complaint Differential Diagnoses: Cellulitis, Other - paronychia - Diagnoses Provider Diagnoses: Paronychia of finger of left hand Discharge - Sign-Out/Discharge Documenting (check all that apply): Patient Departure - discharge Patient Received Moderate/Deep Sedation with Procedure: No - Discharge Plan Condition: Stable Disposition: HOME Prescriptions: Fluconazole 150 MG TAB* [Diflucan 150 MG TAB*] 150 mg PO ONCE #1 tablet Ibuprofen TAB* [Motrin TAB* 600 MG] 600 mg PO Q8H PRN #15 tab MDD 3 PRN Reason: Pain Sulfamethox/Trimethoprim DS* [Bactrim DS 800/160 TAB*] 1 tab PO BID #20 tab Patient Education Materials: Paronychia (ED) Referrals: [facility] PHYSICIAN REFERRAL [Outside] - 3 Days Additional Instructions: RETURN TO THE EMERGENCY DEPARTMENT WITH NEW OR WORSENING SYMPTOMS. FOLLOW UP WITH [facility] PHYSICIAN REFERRAL, IF NEEDED. - Billing Disposition and Condition Condition: STABLE Disposition: Home - Attestation Statements Document Initiated by Scribe: Yes Documenting Scribe: Tyrese Abarca Provider For Whom Scribe is Documenting (Include Credential): Esau March MD Scribe Attestation: Tyrese Georges scribed for Esau March MD on 10/14/18 at 1145. Scribe Documentation Reviewed: Yes Provider Attestation: The documentation as recorded by the Tyrese rossi accurately reflects the service I personally performed and the decisions made by Esau lipscomb MD Status of Scribe Document: Viewed
[2018-10-14] MEDS ORDERED: Sulfamethox/Trimethoprim DS 800/160* TAB PO ONE (11:23)
[2018-10-14] MEDS ORDERED: Ibuprofen TAB* 600 MG PO ONE (11:24)
[2018-10-14 11:49] VITALS: BP 175/105
== END 2018-10-14 11:48 | disposition home or self-care (01) ==
LOC: ED 10:01
DX: L03.012 Cellulitis of left finger (principal); F17.210 Nicotine dependence, cigarettes, uncomplicated; Z88.1 Allergy status to other antibiotic agents
CPT/HCPCS: 10060; 99282; A9270-GY

== ENCOUNTER 2019-03-18 21:17 | Emergency (ER) | payer OTHER ==
[2019-03-18 22:48] LABS: ABS Eosinophils 0.4 10^3/ul (0-0.6); ABS Lymphocytes 4.8 10^3/ul (1.0-4.8); ABS Monocytes 0.6 10^3/ul (0-0.8); ABS Neutrophils 4.1 10^3/ul (1.5-7.7); Eosinophil % 4.5 %; Hematocrit 40 % (35-47); Hemoglobin 13.7 g/dL (12.0-16.0); Lymphocyte % 48.2 %; Mean Corpuscular HGB Conc 34 g/dL (31-36); Mean Corpuscular Hemoglobin 32 pg (27-31); Mean Corpuscular Volume 91 fL (80-97); Mean Platelet Volume 7.2 fL (7.4-10.4); Platelet Count 313 10^3/uL (150-450); Red Blood Count 4.37 10^6 /uL (3.70-4.87); Red Cell Distribution Width 13 % (10-15)
[2019-03-18 23:03] LABS: Albumin 4.3 g/dL (3.2-5.2); Albumin/Globulin Ratio 1.5 (1-3); BUN/Creatinine Ratio 20.5 (8-20); C Reactive Protein 10.62 mg/L (<8.01); Calcium 9.7 mg/dL (8.6-10.3); EGFR African American 94.7 (>60); EGFR Non-African American 78.2 (>60); Globulin 2.8 g/dL (2-4); Potassium 3.6 mmol/L (3.5-5.0); Total Bilirubin 0.6 mg/dL (0.2-1.0); Total Protein 7.1 g/dL (6.4-8.9)
[2019-03-18] MEDS ORDERED: DOXYcycline CAP(*) 100 MG PO ONE (23:27)
--- NOTE | 2019-03-18 23:30 | ED ---
Influenza-Like Illness - HPI Summary HPI Summary: Patient complains of body aches, headache, fatigue 3 days. Patient states history of Lyme disease 6 months ago, and she felt exactly the same. Denies known tick bite, fever, cough, sore throat, CP, SOB, N/V/D, abdominal pain, change in urine, change in BM. Medical history is none. - History of Current Complaint Chief Complaint: EDHeadache Time Seen by Provider: 03/18/19 23:06 Hx Obtained From: Patient Onset/Duration: Gradual Onset, Lasting Days Severity: Moderate Associated Signs & Symptoms: Myalgia, Headache - Allergy/Home Medications Allergies/Adverse Reactions: Allergies Allergy/AdvReac Type Severity Reaction Status Date / Time clindamycin Allergy Swelling Verified 03/18/19 21:35 PMH/Surg Hx/FS Hx/Imm Hx Endocrine/Hematology History: Denies: Hx Diabetes Cardiovascular History: Denies: Hx Congestive Heart Failure, Hx Hypertension Respiratory History: Denies: Hx Cystic Fibrosis History: Denies: Hx Dialysis Sensory History: Denies: Hx Legally Blind, Hx Deafness Opthamlomology History: Denies: Hx Legally Blind EENT History: Denies: Hx Deafness Neurological History: Denies: Hx Dementia Psychiatric History: Denies: Hx Autism - Surgical History Surgery Procedure, Year, and Place: TUBAL LIGATION, - Immunization History Immunizations Up to Date: Yes Infectious Disease History: No Infectious Disease History: Denies: Traveled Outside the [place] in Last 30 Days - Family History Known Family History: Positive: Hypertension, Diabetes, Other - POS: HLD - Social History Alcohol Use: Occasionally Alcohol Amount: weekend Substance Use Type: Reports: None Smoking Status (MU): Heavy Every Day Tobacco Smoker Amount Used/How Often: 1 ppd Review of Systems Positive: Fatigue Eyes: Negative ENT: Negative Cardiovascular: Negative Respiratory: Negative Gastrointestinal: Negative Genitourinary: Negative Positive: Myalgia Skin: Negative Positive: Headache Psychological: Normal All Other Systems Reviewed And Are Negative: Yes Physical Exam - Summary Physical Exam Summary: Neuro exam normal. Full range of motion of neck and jaw. Triage Information Reviewed: Yes Vital Signs On Initial Exam: Initial Vitals Temp Pulse Resp BP Pulse Ox 98.0 F 88 16 147/98 99 03/18/19 21:30 03/18/19 21:30 03/18/19 21:30 03/18/19 21:30 03/18/19 21:30 Vital Signs Reviewed: Yes Appearance: Positive: Well-Appearing Skin: Positive: Warm Head/Face: Positive: Normal Head/Face Inspection Eyes: Positive: Normal ENT: Positive: Normal ENT inspection Neck: Positive: Supple Respiratory/Lung Sounds: Positive: Clear to Auscultation Cardiovascular: Positive: Normal Abdomen Description: Positive: Nontender Musculoskeletal: Positive: Normal Neurological: Positive: Normal Psychiatric: Positive: Normal AVPU Assessment: Alert - Paige Coma Scale Best Eye Response: 4 - Spontaneous Best Motor Response: 6 - Obeys Commands Best Verbal Response: 5 - Oriented Coma Scale Total: 15 Diagnostics - Vital Signs Vital Signs Temp Pulse Resp BP Pulse Ox 03/18/19 23:15 82 99 03/18/19 23:14 77 150/102 98 03/18/19 21:30 98.0 F 88 16 147/98 99 - Laboratory Lab Results: Lab Results 03/18/19 03/18/19 Range/Units 22:40 22:40 WBC 10.0 (3.5-10.8) 10^3/uL RBC 4.37 (3.70-4.87) 10^6 /uL Hgb 13.7 (12.0-16.0) g/dL Hct 40 (35-47) % MCV 91 (80-97) fL MCH 32 H (27-31) pg MCHC 34 (31-36) g/dL RDW 13 (10-15) % Plt Count 313 (150-450) 10^3/uL MPV 7.2 L (7.4-10.4) fL Neut % (Auto) 40.8 % Lymph % (Auto) 48.2 % Wilcox % (Auto) 6.1 % Eos % (Auto) 4.5 % Baso % (Auto) 0.4 % Absolute Neuts (auto) 4.1 (1.5-7.7) 10^3/ul Absolute Lymphs (auto) 4.8 (1.0-4.8) 10^3/ul Absolute Monos (auto) 0.6 (0-0.8) 10^3/ul Absolute Eos (auto) 0.4 (0-0.6) 10^3/ul Absolute Basos (auto) 0.0 (0-0.2) 10^3/ul Absolute Nucleated RBC 0.0 10^3/ul Nucleated RBC % 0.0 Sodium 140 (135-145) mmol/L Potassium 3.6 (3.5-5.0) mmol/L Chloride 107 (101-111) mmol/L Carbon Dioxide 26 (22-32) mmol/L Anion Gap 7 (2-11) mmol/L BUN 17 (6-24) mg/dL Creatinine 0.83 (0.51-0.95) mg/dL Est GFR ( Amer) 94.7 (>60) Est GFR (Non-Af Amer) 78.2 (>60) BUN/Creatinine Ratio 20.5 H (8-20) Glucose 100 (70-100) mg/dL Calcium 9.7 (8.6-10.3) mg/dL Total Bilirubin 0.60 (0.2-1.0) mg/dL AST 25 (13-39) U/L ALT 22 (7-52) U/L Alkaline Phosphatase 80 (34-104) U/L C-Reactive Protein 10.62 H (<8.01) mg/L Total Protein 7.1 (6.4-8.9) g/dL Albumin 4.3 (3.2-5.2) g/dL Globulin 2.8 (2-4) g/dL Albumin/Globulin Ratio 1.5 (1-3) Result Diagrams: 03/18/19 22:40 03/18/19 22:40 Lab Statement: Any lab studies that have been ordered have been reviewed, and results considered in the medical decision making process. Flu Symptom Course/Dx - Course Course Of Treatment: Patient complains of body aches, headache, fatigue 3 days. Patient states history of Lyme disease 6 months ago, and she felt exactly the same. Denies known tick bite, fever, cough, sore throat, CP, SOB, N /V/D, abdominal pain, change in urine, change in BM. Medical history is none. Vital signs within normal limits. Labs unremarkable. Patient started on doxycycline here in the ED. Rx for doxycycline twice a day 21 days. Tick borne panel pending. - Diagnoses Provider Diagnoses: Generalized body aches, Headache, Fatigue Discharge ED - Sign-Out/Discharge Documenting (check all that apply): Patient Departure Patient Received Moderate/Deep Sedation with Procedure: No - Discharge Plan Condition: Stable Disposition: HOME Prescriptions: DOXYcycline CAP(*) [DOXYcycline 100MG CAP(*)] 100 mg PO BID 21 Days #42 cap Patient Education Materials: Lyme Disease (ED), Viral Syndrome (ED) Forms: *Work Release Referrals: No Primary Care Phys,NOPCP [Primary Care Provider] - Additional Instructions: Take antibiotics as directed. Ibuprofen or Tylenol for headache and body aches. Labs for Lyme disease pending. Return to the ED for any new or worsening symptoms. - Billing Disposition and Condition Condition: STABLE Disposition: Home
[2019-03-18 23:53] VITALS: BP 124/86
[2019-03-23 17:49] LABS: Anaplasma phagocytophilum Negative (Negative); B. miyamotoi PCR, B Negative (Negative); Babesia divergens/MO-1 Negative (Negative); Babesia ducani Negative (Negative); Ehrlichia chaffeensis Negative (Negative); Ehrlichia ewingii/canis Negative (Negative); Ehrlichia muris eauclairensis Negative (Negative)
== END 2019-03-18 23:51 | disposition home or self-care (01) ==
LOC: ED 21:17
DX: M79.10 Myalgia, unspecified site (principal); R51 Headache; R53.83 Other fatigue; A69.20 Lyme disease, unspecified; F17.210 Nicotine dependence, cigarettes, uncomplicated
CPT/HCPCS: 36415; 80053; 85025; 86140; 86618; 87798; 99282; A9270-GY

== ENCOUNTER 2019-08-03 11:55 | Emergency (ER) | payer SELFPAY ==
[2019-08-03] MEDS ORDERED: Ibuprofen TAB* 600 MG PO ONE (13:14)
[2019-08-03 13:43] VITALS: BP 134/94
--- NOTE | 2019-08-03 13:46 | ED ---
Upper Extremity Pain - HPI Summary HPI Summary: Patient is a 34-year-old otherwise healthy female presenting to the ED with a left hand injury. Patient states she tripped over her dog this morning and fell directly on her hand. She noticed immediate swelling to the base of the thumb, first and second metacarpal with ecchymosis. Continues to be able to move the extremity, however with some limitations of range of motion. Denies any tingling to the fingertips, but endorses some amount of tingling to the distal tip of the thumb. No pain to the wrist or forearm. No pain to the ulnar side of the hand. - History of Current Complaint Chief Complaint: EDExtremityUpper Stated Complaint: HAND INJURY PER PT Time Seen by Provider: 08/03/19 12:24 Hx Obtained From: Patient Hx Last Menstrual Period: 12/31/16 Mechanism Of Injury: Blunt Trauma Onset/Duration: Started Hours Ago Timing: Constant Severity Initially: Moderate Severity Currently: Moderate Pain Location: Hand - and thumb - L Character: Aching Aggravating Factor(s): Nothing, Movement Associated Signs & Symptoms: Positive: Swelling, Bruising, Numbness/Tingling - tingling to the distal thumb. Negative: Redness, Weakness, Chest Pain Related History: Dominant Hand Right - Risk Factors Non-Orthopedic Risk Factor: Negative DVT Risk Factors: Negative Septic Arthritis Risk Factor: Negative Compartment Syndrome Risk Factors: Pain - Allergies/Home Medications Allergies/Adverse Reactions: Allergies Allergy/AdvReac Type Severity Reaction Status Date / Time clindamycin Allergy Swelling Verified 08/03/19 12:09 PMH/Surg Hx/FS Hx/Imm Hx Previously Healthy: Yes Endocrine/Hematology History: Denies: Hx Diabetes Cardiovascular History: Denies: Hx Congestive Heart Failure, Hx Hypertension Respiratory History: Denies: Hx Cystic Fibrosis History: Denies: Hx Dialysis Sensory History: Denies: Hx Legally Blind, Hx Deafness Opthamlomology History: Denies: Hx Legally Blind Neurological History: Denies: Hx Dementia Psychiatric History: Denies: Hx Autism - Surgical History Surgery Procedure, Year, and Place: TUBAL LIGATION, - Immunization History Hx Pertussis Vaccination: No Immunizations Up to Date: Yes Infectious Disease History: No Infectious Disease History: Denies: Traveled Outside the [place] in Last 30 Days - Family History Known Family History: Positive: Hypertension, Diabetes, Other - POS: HLD - Social History Occupation: Employed Full-time Lives: With Family Alcohol Use: Occasionally Alcohol Amount: weekend Hx Substance Use: Yes Substance Use Type: Reports: Marijuana Hx Tobacco Use: Yes Smoking Status (MU): Heavy Every Day Tobacco Smoker Amount Used/How Often: 1 ppd Review of Systems Negative: Fever, Chills, Fatigue, Skin Diaphoresis Negative: Palpitations, Chest Pain Negative: Shortness Of Breath, Cough Genitourinary: Negative Positive: no symptoms reported, see HPI Positive: Arthralgia - left thumb/hand pain. Negative: Myalgia Positive: Bruising Negative: Headache, Weakness, Paresthesia All Other Systems Reviewed And Are Negative: Yes Physical Exam Triage Information Reviewed: Yes Vital Signs On Initial Exam: Initial Vitals Temp Pulse Resp BP Pulse Ox 99.5 F 82 18 127/103 99 08/03/19 12:06 08/03/19 12:06 08/03/19 12:06 08/03/19 12:06 08/03/19 12:06 Vital Signs Reviewed: Yes Appearance: Positive: Well-Appearing, Well-Nourished Skin: Positive: Warm, Skin Color Reflects Adequate Perfusion Head/Face: Positive: Normal Head/Face Inspection Eyes: Positive: EOMI, CLARA, Conjunctiva Clear Neck: Positive: Supple, No Lymphadenopathy Respiratory/Lung Sounds: Positive: Clear to Auscultation, Breath Sounds Present Cardiovascular: Positive: RRR, Pulses are Symmetrical in both Upper and Lower Extremities Musculoskeletal: Positive: Strength/ROM Intact, Pain @ - left hand and thumb pain Neurological: Positive: Alert, Oriented to Person Place, Time, Speech Normal Psychiatric: Positive: Normal, Affect/Mood Appropriate - Paige Coma Scale Best Eye Response: 4 - Spontaneous Best Motor Response: 6 - Obeys Commands Best Verbal Response: 5 - Oriented Coma Scale Total: 15 Procedures - Sedation Patient Received Moderate/Deep Sedation with Procedure: No Diagnostics - Vital Signs Vital Signs Temp Pulse Resp BP Pulse Ox 08/03/19 12:06 99.5 F 82 18 127/103 99 - Laboratory Lab Statement: Any lab studies that have been ordered have been reviewed, and results considered in the medical decision making process. Course/Dx - Course Course Of Treatment: This patient is evaluated for left-sided hand and thumb injury. She has ecchymosis and swelling to the base of the thumb and into the hand over the first and second metacarpal. Limited range of motion, however opposition remains intact. Pain on palpation. X-ray of the hand obtained which shows no acute findings except for some swelling. Thumb spica splint applied. Encouraged ice and ibuprofen. Ibuprofen given in the ED. Pt OK for DC home at this time and will return for any worsening sxs. Note given for work. - Diagnoses Differential Diagnosis/HQI/PQRI: Positive: Fracture (Closed), Strain, Sprain Provider Diagnoses: Contusion of left hand Discharge ED - Sign-Out/Discharge Documenting (check all that apply): Patient Departure - Discharge Plan Condition: Stable Disposition: HOME Patient Education Materials: Contusion in Adults (ED) Forms: *Work Release Referrals: No Primary Care Phys,NOPCP [Primary Care Provider] - Additional Instructions: Ibuprofen 600mg three times daily 2 days off work Ice to the area Wear brace as needed for pain - Billing Disposition and Condition Condition: STABLE Disposition: Home
== END 2019-08-03 13:42 | disposition home or self-care (01) ==
LOC: ED 11:55
DX: S60.222A Contusion of left hand, initial encounter (principal); W01.0XXA Fall on same level from slipping, tripping and stumbling without subsequent striking against object, initial encounter; Y92.9 Unspecified place or not applicable; R60.0 Localized edema; F17.210 Nicotine dependence, cigarettes, uncomplicated
CPT/HCPCS: 99282; A9270-GY